=== PATIENT | female | born 1945 | race Caucasian/White ===

== ENCOUNTER 2017-12-10 05:26 | Inpatient (IN) ==
[2017-12-10] MEDS ORDERED: Metoprolol Tartrate 25 MG Tablet PO ONE (05:58)
[2017-12-10] MEDS ORDERED: Chlorhexidine Gluconate 2% 1 Pack (2 Cloths) TOPICAL ONE (05:58)
[2017-12-10] MEDS ORDERED: Sodium Chlor 0.9% Inj 500 ML IV.SIG SCH (06:00)
[2017-12-10] MEDS ORDERED: ceFAZolin 2 GM Premix Inj 2 GM/50 ML PIGGYBACK IV.SIG ONE (06:58)
[2017-12-10] MEDS ORDERED: ceFAZolin 1 GM Premix Inj 1 GM/50 ML FROZ.PIGGY IV.SIG ONE (06:58)
[2017-12-10] MEDS ORDERED: Bupivacaine/Epinephrine Inj 0.25% 50 ML Vial ONE (06:59)
[2017-12-10] MEDS ORDERED: Glycopyrrolate Inj 1 MG/5 ML Syringe IV.PUSH ONE (07:28)
[2017-12-10] MEDS ORDERED: Neostigmine Inj 5 MG/5 ML Syringe IV.PUSH ONE (07:28)
[2017-12-10] MEDS ORDERED: Lidocaine PF 1% Inj 5 ML Syringe OTHER ONE (07:28)
[2017-12-10] MEDS ORDERED: ceFAZolin Inj 3,000 MG in Sodium Chlor 0.9% Inj 100 ML IV.SIG SCH (07:30)
[2017-12-10] MEDS ORDERED: diphenhydrAMINE HCl 12.5 MG/5 ML Elixir UDC PO PRN (09:22)
[2017-12-10] MEDS ORDERED: Post-op Orders (for Pharmacy) OTHER STA (09:22)
[2017-12-10] MEDS ORDERED: Morphine Inj 30 MG/30 ML PCA.VIAL PCA PRN (09:26)
[2017-12-10] MEDS ORDERED: Naloxone Inj 0.4 MG/ML Vial IV.PUSH PRN (09:26)
[2017-12-10] MEDS ORDERED: KCL 20 mEq/NACL 0.45% Inj 1,000 ML ONE (09:41)
[2017-12-10] MEDS ORDERED: Morphine Inj 30 MG/30 ML PCA.VIAL PCA ONE (09:42)
[2017-12-10] MEDS ORDERED: *Promethazine Inj 25 MG/ML Vial PERIprocedural use ONLY ONE (09:42)
[2017-12-10] MEDS ORDERED: fentaNYL Citrate Inj 100 MCG/2 ML Ampul ONE (09:44)
[2017-12-10] MEDS: KCL 20 mEq/NACL 0.45% Inj 1,000 ML IV.CONT SCH ×2 (09:45→17:50)
[2017-12-10] MEDS ORDERED: *morphine SULFATE 4 MG/ML PERIprocedure ONLY ONE ×3 (09:46→10:12)
[2017-12-10] MEDS ORDERED: HYDROmorphone PF Inj 2 MG/ML Vial ONE (10:23)
[2017-12-10] MEDS: Enoxaparin Inj 40 MG/0.4 ML Syringe SQ SCH (13:00)
[2017-12-10] MEDS ORDERED: Dimethicone/Oxybenzone-Padimate Lip Balm 4.25 GM Tube TOPICAL ONE (13:08)
--- NOTE | 2017-12-10 14:26 | MP ---
cc: Garrett Underwood MD DATE OF OPERATION: 12/10/2017 PREOPERATIVE DIAGNOSES: Morbid obesity with a body mass index of 44, complicated by essential hypertension, hypercholesterolemia. Hiatal hernia, moderate size. POSTOPERATIVE DIAGNOSES: Morbid obesity with a body mass index of 44, complicated by essential hypertension, hypercholesterolemia. Hiatal hernia, moderate size. PROCEDURE: 1. Laparoscopic Neeta-en-Y gastric bypass, 100 cm Neeta limb, antegastric, antecolic. 2. Laparoscopic hiatal hernia repair. SURGEON: Garrett Underwood MD. FIRST ASSIST: Zeferino Nava MD. Dr. Nava's assistance was necessary for the procedure due to the complexity of the procedure. Dr. Nava assisted with manipulation and exposure during the procedure. The medical assistant ob gyn provided by [employer] was utilized at the back table and managing the camera. ANESTHESIA: General endotracheal anesthesia. ESTIMATED BLOOD LOSS: 10 mL. FINDINGS: Moderate-sized hiatal hernia. SPECIMENS: None. COMPLICATIONS: None. DETAILS OF PROCEDURE: The patient was brought to the operating room and placed on the operating table in supine position, bilateral sequential inflation device placed on lower extremities, general anesthesia instituted, antibiotics initiated. The abdomen was prepped and draped sterilely. A point 18-cm distal to the xiphoid in the midline anesthetized with 0.25% Marcaine with epinephrine. The skin incision was made, a 5-mm OptiView port placed under direct vision and pneumoperitoneum was created. Under direct vision a 5-mm left upper quadrant, 12-mm left upper quadrant, 12-mm right upper quadrant and 5-mm right upper quadrant ports were placed. Prior to placement of all ports, the skin and peritoneum were anesthetized with 0.25% Marcaine with epinephrine. The patient's omentum was lifted into the upper abdomen. It was split down the middle to create a path for the Neeta limb. The ligament of Treitz was identified, a point 40 cm distal identified. The small bowel was divided in this region using an Grimsley Flex stapler vascular load reinforced with SeamGuard. The distal segment was brought up for a distance of 100 cm, enterotomy created in this region, enterotomy in the biliopancreatic limb and a [id number] stapled jejunojejunostomy created in the usual manner. The mesenteric defect at the jejunojejunostomy was closed with 2-0 Surgidac suture in a running manner. The patient was placed in reverse Trendelenburg position with the left side up. The Fifi-Flex retractor was placed. The left lobe of the liver was retracted. A moderate hiatal hernia identified. The angle of His was taken down bluntly, the left and right leonardo of the diaphragm the GE junction mobolized into the abdominal cavity, hernia sac excised. The leonardo of the diaphragm approximated with 0-silk suture in a figure of eight manner. A point 5 cm distal to the GE junction along the lesser curve identified, the lesser sac entered using blunt dissection. The stomach was partitioned horizontally using an [employer] stapler blue load, an additional firing taken directed towards the angle of His to completely divide the stomach. A gastrotomy created in the new stomach, enterotomy in the Neeta limb and gastrojejunostomy created, stomal opening of 2 cm. An 18-Italian OG tube was placed across the anastomosis, the defect then closed in two layers of running 2-0 Vicryl. Prior to placement of the second layer, methylene blue instilled through the OG tube. There was no evidence of extravasation. Evicel was then placed over the gastrojejunostomy, jejunojejunostomy and all staple lines. The operative field inspected and hemostasis was present. The CO2 was released, all ports were removed. All skin incisions were closed with 4-0 Monocryl. The abdominal wall was cleaned and a sterile dressing placed. The patient was awakened and taken to the recovery room. MD BEBA Calles/marlo , 09:32 AM , 09:37 AM PAT
[2017-12-11] MEDS: KCL 20 mEq/NACL 0.45% Inj 1,000 ML IV.CONT SCH ×3 (03:38→20:13)
[2017-12-11] MEDS: Levothyroxine 75 MCG Tablet PO SCH (05:56)
[2017-12-11] MEDS: Levothyroxine 100 MCG Tablet PO SCH (05:56)
[2017-12-11 07:45] LABS: Baso % (Auto) 0.2 % (0.0-2.0); Eos # (Auto) 0.1 th/mm3 (0.0-0.4); Eos % (Auto) 0.6 % (0.0-4.0); Hematocrit 38.6 % (35.0-46.0); Hemoglobin 13.2 gm/dL (11.6-15.3); Lymph # (Auto) 1.1 th/mm3 (1.0-4.8); Mean Corpuscular HGB Conc 34.1 % (32.0-36.0); Mean Corpuscular Hemoglobin 30.8 pg (27.0-34.0); Mean Corpuscular Volume 90.3 fL (80.0-100.0); Mean Platelet Volume 9.7 fL (7.0-11.0); Mono # (Auto) 0.6 th/mm3 (0.0-0.9); Mono % (Auto) 6.8 % (0.0-8.0); Neut # (Auto) 6.9 th/mm3 (1.8-7.7); Neut % (Auto) 79.4 % (16.0-70.0); Platelet Count 128 th/mm3 (150-450); Red Blood Count 4.27 mil/mm3 (4.00-5.30); Red Cell Distribution Width 13.8 % (11.6-17.2); White Blood Count 8.7 th/mm3 (4.0-11.0)
[2017-12-11 08:13] LABS: Calcium 7.7 mg/dL (8.5-10.1); Carbon Dioxide 26.4 meq/L (21.0-32.0); Magnesium 2.1 mg/dL (1.5-2.5); Potassium 4.2 meq/L (3.5-5.1)
[2017-12-11] MEDS ORDERED: Non-Formulary Drug (Levothyroxine [Levothyroxine] 175 MCG) PO SCH (09:00)
[2017-12-11] MEDS: Atenolol 25 MG Tablet PO SCH (10:04)
--- NOTE | 2017-12-11 10:12 | XR ---
EXAM DATE: 12/11/2017 12:00 AM EDT AGE/SEX: 72 years / Female INDICATIONS: Short of breath. CLINICAL DATA: This is the patient's initial encounter. Patient reports that signs and symptoms have been present for 2 days and indicates a pain score of 7/10. MEDICAL/SURGICAL HISTORY: None. . Gastric bypass. COMPARISON: No prior exams available for comparison. FINDINGS: Mild airspace disease in the left lower lung zone. The cardiomediastinal contours are unremarkable. Osseous structures are intact. CONCLUSION: 1. Mild airspace disease in the left lower lung zone, presumably atelectasis. Electronically signed by: Chico Minor MD 12/11/2017 10:10 AM EDT
[2017-12-11] MEDS: Enoxaparin Inj 40 MG/0.4 ML Syringe SQ SCH (13:33)
--- NOTE | 2017-12-11 14:58 | P.PNGS ---
Subjective Patient reports: tolerating liquids well, voiding w/o difficulty, shortness of breath (Pt reports dypnea with exertion, no chest pain, or palpitations. ON 2L from PACU. Ambulating.) Physical Exam Vital signs: Vital Signs 12/10/17 15:30 12/10/17 20:00 12/10/17 21:24 Temperature 97.9 F 97.4 F L Pulse Rate 76 73 Respiratory Rate 20 18 Blood Pressure 128/60 132/65 Pulse Oximetry 93 L 93 L 93 L 12/10/17 22:44 12/11/17 00:00 12/11/17 04:00 Temperature 97.8 F 97.9 F Pulse Rate 67 86 Respiratory Rate 20 18 18 Blood Pressure 125/58 L 134/64 Pulse Oximetry 92 L 92 L 12/11/17 05:32 12/11/17 08:00 12/11/17 08:03 Temperature 98.2 F Pulse Rate 73 Respiratory Rate 20 18 Blood Pressure 132/62 Pulse Oximetry 93 L 94 L 12/11/17 10:43 12/11/17 11:56 Temperature 97.4 F L Pulse Rate 69 Respiratory Rate 18 Blood Pressure 124/58 L Pulse Oximetry 93 L 91 L Intake & Output 12/10/17 12/11/17 12/11/17 18:59 06:59 18:59 Intake Total 2200 / 2200 1500 / 1500 1000 / 1000 Output Total 20 / 20 Balance 2180 / 2180 1500 / 1500 1000 / 1000 Weight 117.1 kg Intake: IV 1400 / 1400 1500 / 1500 1000 / 1000 Potassium Chlor 20 mEq/NACL 0. 1000 / 1000 1000 / 1000 1000 / 1000 45% Inj 1,000 ML @ 125 mls/hr IV.CONT .Q8H [facility] Rx#:[id number] Ofirmev Inj 1,000 mg In 100 ml 100 / 100 300 / 300 @ 400 mls/hr IV.SIG Q6H [facility] Rx# :[id number] LR 1000 mL Inj 1,000 ML @ 30 100 / 100 mls/hr IV.SIG .Q24H [facility] Rx#: [id number] Ancef Inj 1,000 MG In NS Inj 100 / 100 100 / 100 100 ML @ 200 mls/hr IV.SIG Q8H [facility] Rx#:[id number] Flagyl 500 MG Inj 100 ML @ 200 100 / 100 100 / 100 mls/hr IV.SIG Q8H [facility] Rx#: [id number] Anesthesia Amount 800 / 800 Output: Estimated Blood Loss 20 / 20 Other: # Voids 2 - Constitutional no acute distress - Routine Respiratory Exam Present: crackles Comments: crackles LLL - Routine Cardiovascular Exam Present: RRR, S2 - Routine Abdominal Exam Present: soft Comments: normal post op tenderness, with laproscopic sites C/D/I Results - Labs 12/11/17 07:05 12/11/17 07:05 Laboratory Results - last 24 hr 12/11/17 12/11/17 07:05 07:05 WBC 8.7 RBC 4.27 Hgb 13.2 Hct 38.6 MCV 90.3 MCH 30.8 MCHC 34.1 RDW 13.8 Plt Count 128 L MPV 9.7 Neut % (Auto) 79.4 H Lymph % (Auto) 13.0 [place] % (Auto) 6.8 Eos % (Auto) 0.6 Baso % (Auto) 0.2 Neut # (Auto) 6.9 Lymph # (Auto) 1.1 [place] # (Auto) 0.6 Eos # (Auto) 0.1 Baso # (Auto) 0.0 WBC Differential . Differential Comment Auto diff final Sodium 135 L Potassium 4.2 Chloride 101 Carbon Dioxide 26.4 Anion Gap 8 BUN 12 Creatinine 0.68 Estimated GFR 86 L Random Glucose 115 H Calcium 7.7 L Magnesium 2.1 - Imaging Imaging: ITS Impressions Chest X-Ray 12/11/17 00:00 CONCLUSION: 1. Mild airspace disease in the left lower lung zone, presumably atelectasis. Assessment and Plan - Plan POD#1 laproscopic RNY with Hiatal hernia repair Ambulate, emphasize IS DC VIRTUAL CUSTOMER ASSISTANT Obtain CXR Increase PO to 60ml q 30 Decrease IVF to 100ml/hr consider discharge tomorrow if doing well. Code Status: full Discussed Condition With: patient
[2017-12-11] MEDS: Acetaminophen-HYDROcodone 325/7.5 Liq 15 ML UDC PO PRN (18:48)
[2017-12-12] MEDS: Acetaminophen-HYDROcodone 325/7.5 Liq 15 ML UDC PO PRN (03:03)
[2017-12-12] MEDS: KCL 20 mEq/NACL 0.45% Inj 1,000 ML IV.CONT SCH ×2 (03:04→12:39)
[2017-12-12] MEDS: Levothyroxine 100 MCG Tablet PO SCH (06:17)
[2017-12-12] MEDS: Levothyroxine 75 MCG Tablet PO SCH (06:17)
[2017-12-12] MEDS: Atenolol 25 MG Tablet PO SCH (08:24)
[2017-12-12 12:26] VITALS: O2SAT 95
[2017-12-12] MEDS: Enoxaparin Inj 40 MG/0.4 ML Syringe SQ SCH (13:17)
--- NOTE | 2017-12-12 16:00 | P.PNGS ---
Subjective Patient reports: feels better, tolerating liquids well (Continues on 2L O2, denies chest pain, or palpitations, continues to c/o shortness of breath with exertion. CXR with atelectasis.) Physical Exam Vital signs: Vital Signs 12/11/17 16:00 12/11/17 20:00 12/11/17 20:13 Temperature 98.7 F 98.2 F Pulse Rate 70 69 Respiratory Rate 18 18 18 Blood Pressure 120/56 L 117/58 L Pulse Oximetry 92 L 97 Pulse Oximetry [Exertion on Room Air] Pulse Oximetry [Exertion with Oxygen] Pulse Oximetry [Resting on Room Air] 12/11/17 21:19 12/12/17 00:00 12/12/17 06:13 Temperature 98.0 F Pulse Rate 74 Respiratory Rate 18 18 20 Blood Pressure 137/67 Pulse Oximetry 98 Pulse Oximetry [Exertion on Room Air] Pulse Oximetry [Exertion with Oxygen] Pulse Oximetry [Resting on Room Air] 12/12/17 08:00 12/12/17 09:40 12/12/17 12:00 Temperature 97.9 F 98.6 F Pulse Rate 75 69 Respiratory Rate 16 18 Blood Pressure 132/63 131/58 L Pulse Oximetry 95 94 L 95 Pulse Oximetry [Exertion on Room Air] 87 L Pulse Oximetry [Exertion with Oxygen] 95 Pulse Oximetry [Resting on Room Air] 92 L Intake & Output 12/11/17 12/12/17 12/12/17 18:59 06:59 18:59 Intake Total 2200 / 2200 120 / 120 1000 / 1000 Output Total 900 / 900 1400 / 1400 Balance 1300 / 1300 -1280 / -1280 1000 / 1000 Weight 118 kg Intake: IV 2200 / 2200 1000 / 1000 Potassium Chlor 20 mEq/NACL 0. 1000 / 1000 1000 / 1000 45% Inj 1,000 ML @ 125 mls/hr IV.CONT .Q8H [facility] Rx#:[id number] Ofirmev Inj 1,000 mg In 100 ml 100 / 100 @ 400 mls/hr IV.SIG Q6H [facility] Rx# :[id number] Flagyl 500 MG Inj 100 ML @ 200 100 / 100 mls/hr IV.SIG Q8H [facility] Rx#: [id number] Oral 120 / 120 Output: Urine 900 / 900 1400 / 1400 - Constitutional no acute distress - Routine Respiratory Exam Present: crackles, diminished air movement - Routine Cardiovascular Exam Present: RRR, S1, S2, murmur - Routine Abdominal Exam Present: soft, tenderness Comments: normal post op tenderness laproscopic sites, C/D/I Results - Labs 12/11/17 07:05 12/11/17 07:05 - Imaging Imaging: ITS Impressions Chest X-Ray 12/11/17 00:00 CONCLUSION: 1. Mild airspace disease in the left lower lung zone, presumably atelectasis. Assessment and Plan - Plan POD#2 laproscopic RNY with Hiatal hernia repair Ambulate, emphasize IS Tolerating fluids well, anticipate D/C home today D/C IVF atelectasis on CXR Consult case management to obtain home O2 therapy F/u with ARCHITECTURAL PROJECT CAPTAIN in my office Friday
[2017-12-12 16:57] VITALS: BP 149/67; PULSE 78; RESP 22; TEMP 97.5
== END 2017-12-12 17:01 | disposition home or self-care (01) ==
LOC: HSDI 05:26 → N07 16:14
PROVIDERS: ADMIT Surgery; ATTEND Surgery